=== PATIENT | male | born 1985 | race Caucasian/White ===

== ENCOUNTER 2018-06-02 15:28 | Emergency (ER) | payer BC ==
[~2018-06-02] VITALS: Ht 172.7 cm; Wt 76.0 kg
[2018-06-02 15:59] LABS: PTT 29.7 SEC (25-37)
[2018-06-02 16:10] LABS: AMYLASE 44 IU/L (1-118)
[2018-06-02 16:16] LABS: LIPASE 26 U/L (1.0-51.0)
[2018-06-02 16:38] LABS: TROP-I INTERPRETATION NEGATIVE; TROPONIN-I < 0.01 ng/mL (0.0-0.30)
[2018-06-02 17:41] LABS: AMPHETAMINE NEGATIVE (500 ng/mL); BARBITURATES NEGATIVE (200 ng/mL); BENZODIAZEPINES NEGATIVE (150 ng/mL); COCAINE NEGATIVE (150 ng/mL); METHADONE NEGATIVE (200 ng/mL); METHAMPHETAMINE NEGATIVE (500 ng/mL); OPIATES (MORPHINE) NEGATIVE (100 ng/mL); OXYCODONE NEGATIVE (100 ng/mL); PHENCYCLIDINE NEGATIVE (25 ng/mL); PROPOXYPHENE NEGATIVE (300 ng/mL); THC CANNABINOIDS NEGATIVE (50 ng/mL); TRICYCLIC ANTIDEPRESSANTS NEGATIVE (300 ng/mL)
[2018-06-02 17:42] LABS: BUPRENORPHINE NEGATIVE (10 ng/mL)
[2018-06-02 18:13] VITALS: BP 117/66
== END 2018-06-02 18:14 | disposition home or self-care (01) ==
LOC: EME 15:28
DX: G43.909 Migraine, unspecified, not intractable, without status migrainosus (principal)
CPT/HCPCS: 70450; 82150; 83690; 84484; 85610; 85730; 99281; 99285; J1885